=== PATIENT | female | born 1990 | race Caucasian/White ===

== ENCOUNTER 2017-01-15 02:46 | Emergency (ER) | payer MEDICAID ==
--- NOTE | 2017-01-15 03:29 | ED Physician Chart ---
ED Chief Complaint/HPI - Patient Information Date Seen:: 01/15/17 Time Seen:: 03:15 Chief Complaint:: cough and fever History of Present Illness:: Patient's had a cough productive of yellow sputum and a fever up to 102 for the last 4 days. She's also had myalgia and had 4 times diarrhea today/ no vomiting. For the first time she's had a upper lobe lesion. Allergies:: Allergies Allergy/AdvReac Type Severity Reaction Status Date / Time No Known Allergies Allergy Verified 04/15/16 01:55 Vitals:: Vital Signs - 8 hr 01/15/17 02:50 Temp 98.1 F HR 85 RR 19 BP 134/72 O2 Sat % 99 Historian:: Patient Review:: Nurse's Note Reviewed ED Review of Systems - Review of Systems General/Constitutional: Fever, Chills Skin: No skin lesions Head: No headache Eyes: No loss of vision ENT: No earache Neck: No neck pain, No swelling Cardio Vascular: No chest pain, No palpitations Pulmonary: Cough, Sputum GI: No nausea, No vomiting, Diarrhea G/U: Frequency Musculoskeletal: No bone or joint pain Endocrine: No polyuria, No polydipsia Psychiatric: No prior psych history, No depression Hematopoietic: No bruising Allergic/Immuno: No urticaria Neurological: No syncope Family Medical History - Family Member Mother History Unknown: Yes Father History Unknown: Yes Ethnicity: Non- Living Status: Still Living Hx Family Hypertension: Yes ED Physical Exam - Physical Examination General/Constitutional: Well-developed, well-nourished, Alert, No distress Head: Atraumatic Eyes: Lids, conjuctiva normal, PERRL Skin: Nl inspection, No rash, No skin lesions, No ecchymosis ENMT: External ears, nose nl, TM canals nl, Nasal exam nl Other ENMT comments:: Mild diffuse erythema of throat; no exudate; 2 mm right upper lip flat vesicle Neck: No nuchal rigidity Respiratory: Nl effort/Exclusion, Clear to Auscultation, No Wheeze/Rhonchi/Rales Cardio Vascular: RRR GI: No tenderness/rebounding/guarding : No CVA tenderness Extremities: No tenderness or effusion Neuro/Psych: No focal deficits Misc: Normal back ED Assessment - Assessment General Assessment: Patient wanted something for her myalgia so will give 30mg of Toradol intramuscularly. I told patient that antibiotics are not effective for viral infections so I suggested waiting a couple days before starting the azithromycin and only take it if symptoms do not improve ED Septic Shock - . Is Septic Shock (SBP<90, OR Lactate>4 mmol\L) present?: No - <6hrs of presentation: Vital Signs: Vital Signs - 8 hr 01/15/17 02:50 Temp 98.1 F HR 85 RR 19 BP 134/72 O2 Sat % 99 ED Reassessment (Disposition) - Reassessment Reassessment Condition:: Unchanged - Diagnosis Diagnosis:: Acute viral syndrome; bronchitis; herpes simplex right upper lip - Aftercare/Follow up Instructions Medication Prescribed:: Pipo prescribed - Patient Disposition Discharge/Transfer:: Home Condition at Disposition:: Stable, Unchanged
== END 2017-01-15 04:15 | disposition home or self-care (01) ==
LOC: ER 02:46
DX: B00.1 Herpesviral vesicular dermatitis (principal)
CPT/HCPCS: 99283; 96372; 81025; J1885; Z7502

== ENCOUNTER 2017-01-30 05:19 | Emergency (ER) | payer MEDICAID ==
[2017-01-30] MEDS ORDERED: cefTRIAXone 2 GM in Sodium Chloride 0.9% 100 ML IV ONE (05:54)
[2017-01-30] MEDS ORDERED: Acetaminophen 500 MG TAB PO ONE (05:57)
[2017-01-30] MEDS ORDERED: Acetaminophen 500 MG TAB ONE (06:00)
--- NOTE | 2017-02-02 14:36 | ER Physician Documentation ---
DATE OF SERVICE: CHIEF COMPLAINT: This is a 26-year-old female patient, who came to the hospital for sore throat, mostly on the left side of the throat and she was here about 3 weeks ago. HISTORY OF PRESENT ILLNESS: Three weeks ago, the patient had a sore throat. She had some nosebleed and that subsided and now she was given azithromycin pack for 1 week and the patient improved for a little while and then again started to have sore throat and the patient had some sort of herpes type things on the lips. The patient again came back. She had twice some nasal epistaxis, but that stopped. The patient was advised to use some humidifier at home because right now there is no bleeding going on. Her past medical history essentially benign and negative. Her personal history and family history all essentially remaining the same, she came here 3 weeks ago. Please see that for the details. Last menstrual period on 01/17/2017. She does not smoke. She does not drink. She does not have any medical history, surgical history. Family history is benign and negative. She took 2 packs of medication, Zithromax, I believe, 2 weeks ago without much benefit. PHYSICAL EXAMINATION: VITAL SIGNS: Temperature is 97.5, pulse is 78, respirations 18, blood pressure 117/63, oxygen saturation 99%, height of 5 feet 3 inches, weighing 220 pounds. HEENT: There is a left-sided submandibular gland type area, which is about a centimeter in size, painful and slight difficulty in swallowing. Examination of the throat appears to be clean, but we will get the throat culture done. CHEST: Clear. Trachea being central with fairly good air entry in both lungs. No rales, rhonchi, or bronchial wheezing. ABDOMEN: Soft, obese, benign, negative. The patient is a little chubby woman weighing 220 pounds. HEART: Reveals normal heart sounds. Fourth heart sound, second heart sound physiologically split. Third heart sound absent. There is no gallop, rub or murmur. There is no evidence of any pericarditis or pleural rub. CENTRAL NERVOUS SYSTEM: Within normal limits. CLINICAL IMPRESSION: The patient has sore throat and evidence of pharyngitis. We will change the antibiotic. We will give the patient Rocephin 2 grams one shot IV and then send her home on Keflex 500 mg 4 times a day. On the left side, she has some soreness and abrasions, which could be herpes. So, we will give the patient some acyclovir 400 mg 5 times a day for 5 days. Hopefully, this should work out and also get a throat culture done. Asked the patient to use some humidifier at home. Other diagnoses are slight obesity and the patient is advised to reduce the diet or see her dietitian for further help of her body ache that she complains, entire body is hurting. She was given some Tylenol 1 gram to be taken at the present time and p.r.n., not to take more than 3 grams of Tylenol a day that should help, ibuprofen, Aleve or any other NSAID will increase the bleeding on the patient. JOB# [id number]
== END 2017-01-30 06:40 | disposition home or self-care (01) ==
LOC: ER 05:19
DX: J02.9 Acute pharyngitis, unspecified (principal)
CPT/HCPCS: 99284; 96365; 87070; J0696; Z7502; Z7610